=== PATIENT | female | born 1995 | race Caucasian/White ===

== ENCOUNTER 2016-12-11 11:31 | Emergency (ER) | payer BC ==
[2016-12-11 11:41] VITALS: BP 126/78
--- NOTE | 2016-12-11 12:52 | RAD ---
Indication: Right foot pain. 3 views of the right foot demonstrates no fracture. No other bone or joint abnormality is noted. IMPRESSION: No fracture of the right foot is noted.
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
== END 2016-12-11 12:59 | disposition home or self-care (01) ==
LOC: UCCORT 11:31
DX: S90.31XA Contusion of right foot, initial encounter (principal); V09.9XXA Pedestrian injured in unspecified transport accident, initial encounter; Y93.9 Activity, unspecified; Y92.9 Unspecified place or not applicable
CPT/HCPCS: 99211; G0463